=== PATIENT | male | born 1985 | race Caucasian/White ===

== ENCOUNTER 2017-01-31 06:20 | Emergency (ER) | payer OTHER ==
[~2017-01-31] VITALS: Ht 175.3 cm; Wt 105.0 kg
[2017-01-31 06:22] VITALS: BP 160/94; PULSE 83; RESP 22; TEMP 97.9; O2SAT 98
[2017-01-31] MEDS ORDERED: OMEP10CA PO (06:31)
[2017-01-31 06:32] VITALS: BP 155/96; PULSE 65; RESP 18; O2SAT 98
[2017-01-31] MEDS ORDERED: KETOROLAC TROMETHAMINE 30 MG/ML (IVP) VIAL IVP ONE (06:45)
[2017-01-31] MEDS ORDERED: FAMOTIDINE 20 MG/2 ML VIAL IV PUSH ONE (06:45)
[2017-01-31] MEDS ORDERED: SODIUM CHLORIDE 0.9% FLUSH 10 ML FLUSH IV FLUSH PRN (06:45)
[2017-01-31] MEDS ORDERED: MORPHINE SULFATE 4 MG/ML INJ IV PUSH ONE (06:45)
[2017-01-31] MEDS ORDERED: ONDANSETRON HCL 4 MG/2 ML VIAL IVP ONE (06:45)
[2017-01-31] MEDS ORDERED: SODIUM CHLOR 0.9% 1000 ML INJ 1,000 ML IV SCH (06:45)
--- NOTE | 2017-01-31 06:50 | PD ---
HPI Chief Complaint: Chest Pain Time Seen by Provider: 06:38 Travel History International Travel<30 days: No Contact w/Intl Traveler<30days: No Traveled to known affect area: No History of Present Illness HPI The patient is a 32-year-old male who presents to the emergency department for chest pain and abdominal pain. The patient states he had a laparoscopic cholecystectomy performed 3 weeks ago at [facility] in [place], [place]. The patient was doing well over the last 2-1/2 weeks until last Sunday when he developed low back pain and in severe upper epigastric pain and lower chest pain that lasted for approximate 5 minutes. The patient states he burped a significant amount of air and then subsequently felt better. The patient was awake this morning, getting dressed for work, when he developed low back pain. He then developed some nausea and vomiting and then developed severe epigastric abdominal pain and substernal chest pain with mild shortness of breath. The patient denies any history of coronary artery disease, does note borderline hypertension in the , but denies any subsequent hyperlipidemia, diabetes, or tobacco use. The pain is located in epigastrium and substernal area, radiates minimally to the lower back, and was associated with one episode of nausea and vomiting. The patient does not have a primary physician. PFSH Past Medical History Narrative Medical Borderline hypertension Diminished Hearing: No Medical other: Yes (STATES "CHRONIC ABD PROBLEMS") Tetanus Vaccination: < 5 Years Influenza Vaccination: No Past Surgical History Narrative Surgical Laparoscopic cholecystectomy Cholecystectomy: Yes (3 WEEKS AGO) Social History Alcohol Use: Yes Tobacco Use: No Substance Use: No Allergies-Medications (Allergen,Severity, Reaction): Coded Allergies: No Known Allergies (Unverified , 01/31/17) Reported Meds & Prescriptions Reported Meds & Active Scripts Active Reported Omeprazole 10 Mg Cap 10 Mg PO DAILY Review of Systems Except as stated in HPI: all other systems reviewed are Neg General / Constitutional: No: Fever Cardiovascular: Positive: Chest Pain or Discomfort Respiratory: Positive: Shortness of Breath Gastrointestinal: Positive: Nausea, Vomiting, Abdominal Pain Genitourinary: No: Dysuria Physical Exam Narrative GENERAL: Awake, alert, pleasant 32-year-old male who appears his stated age and appears in moderate discomfort. SKIN: Focused skin assessment warm/dry. HEAD: Atraumatic. Normocephalic. EYES: Pupils equal and round. No scleral icterus. No injection or drainage. ENT: No nasal bleeding or discharge. Mucous membranes pink and moist. NECK: Trachea midline. No JVD. CARDIOVASCULAR: Regular rate and rhythm. No murmur appreciated. Heart rate in the 60s. RESPIRATORY: No accessory muscle use. Clear to auscultation. Breath sounds equal bilaterally. GASTROINTESTINAL: Abdomen soft, tender palpation right upper quadrant and epigastrium. No rebound tenderness. MUSCULOSKELETAL: No obvious deformities. No clubbing. No cyanosis. No edema. NEUROLOGICAL: Awake and alert. No obvious cranial nerve deficits. Motor grossly within normal limits. Normal speech. PSYCHIATRIC: Appropriate mood and affect; insight and judgment normal. Data Data Last Documented VS Vital Signs Date Time Temp Pulse Resp B/P Pulse Ox O2 Delivery O2 Flow Rate FiO2 01/31/17 08:13 18 01/31/17 07:11 67 132/66 99 01/31/17 06:32 Room Air 01/31/17 06:22 97.9 Orders Complete Blood Count With Diff (01/31/17 06:45) Comprehensive Metabolic Panel (01/31/17 06:45) Lipase (01/31/17 06:45) Urinalysis - C+S If Indicated (01/31/17 06:45) Iv Access Insert/Monitor (01/31/17 06:45) Ecg Monitoring (01/31/17 06:45) Oximetry (01/31/17 06:45) Morphine Inj (Morphine Inj) (01/31/17 06:45) Ondansetron Inj (Zofran Inj) (01/31/17 06:45) Sodium Chlor 0.9% 1000 Ml Inj (Ns 1000 M (01/31/17 06:45) Sodium Chloride 0.9% Flush (Ns Flush) (01/31/17 06:45) Chest, Single Ap (01/31/17 06:45) Famotidine Inj (Pepcid Inj) (01/31/17 06:45) Ketorolac Inj (Toradol Inj) (01/31/17 06:45) Troponin I (01/31/17 06:45) Creatine Kinase (Cpk) (01/31/17 06:45) Ct Abd/Pel W Iv Contrast(Rout) (01/31/17 ) Electrocardiogram (01/31/17 ) Iohexol 350 Inj (Omnipaque 350 Inj) (01/31/17 08:19) Labs Laboratory Tests Test 01/31/17 01/31/17 06:50 07:55 White Blood Count 9.5 TH/MM3 Red Blood Count 4.50 MIL/MM3 Hemoglobin 12.7 GM/DL Hematocrit 38.1 % Mean Corpuscular Volume 84.5 FL Mean Corpuscular Hemoglobin 28.3 PG Mean Corpuscular Hemoglobin 33.5 % Concent Red Cell Distribution Width 14.2 % Platelet Count 278 TH/MM3 Mean Platelet Volume 7.5 FL Neutrophils (%) (Auto) 62.5 % Lymphocytes (%) (Auto) 28.8 % Monocytes (%) (Auto) 7.6 % Eosinophils (%) (Auto) 0.7 % Basophils (%) (Auto) 0.4 % Neutrophils # (Auto) 5.9 TH/MM3 Lymphocytes # (Auto) 2.7 TH/MM3 Monocytes # (Auto) 0.7 TH/MM3 Eosinophils # (Auto) 0.1 TH/MM3 Basophils # (Auto) 0.0 TH/MM3 CBC Comment DIFF FINAL Differential Comment Urine Color LIGHT-YELLOW Urine Turbidity CLEAR Urine pH 5.5 Urine Specific [place] 1.005 Urine Protein NEG mg/dL Urine Glucose (UA) NEG mg/dL Urine Ketones NEG mg/dL Urine Occult Blood NEG Urine Nitrite NEG Urine Bilirubin NEG Urine Urobilinogen LESS THAN 2.0 MG/DL Urine Leukocyte Esterase NEG Urine RBC LESS THAN 1 /hpf Microscopic Urinalysis Comment CULT NOT INDICATED Sodium Level 145 MEQ/L Potassium Level 3.8 MEQ/L Chloride Level 111 MEQ/L Carbon Dioxide Level 23.6 MEQ/L Anion Gap 10 MEQ/L Blood Urea Nitrogen 11 MG/DL Creatinine 0.74 MG/DL Estimat Glomerular Filtration 123 ML/MIN Rate Random Glucose 94 MG/DL Calcium Level 8.4 MG/DL Total Bilirubin 0.8 MG/DL Aspartate Amino Transf 22 U/L (AST/SGOT) Alanine Aminotransferase 34 U/L (ALT/SGPT) Alkaline Phosphatase 110 U/L Total Creatine Kinase 104 U/L Troponin I LESS THAN 0.02 NG/ML Total Protein 6.9 GM/DL Albumin 3.4 GM/DL Lipase 145 U/L MDM Medical Decision Making Medical Screen Exam Complete: Yes Emergency Medical Condition: Yes Medical Record Reviewed: Yes Interpretation(s) EKG reveals normal sinus rhythm with a rate of 67. No ischemic changes or ectopy noted. Differential Diagnosis Differential diagnosis includes pancreatitis, retained biliary stone, gastritis , peptic ulcer disease, esophageal spasm, acute coronary syndrome, pulmonary embolism, pneumonia, nephrolithiasis. Narrative Course IV was established, labs are drawn and sent, and the patient was placed on cardiac telemetry monitoring and continuous pulse oximetry monitoring. EKG was ordered and interpreted. The patient was administered morphine, Zofran, Toradol , and IV fluids. Upright chest x-ray was obtained. The patient was signed out to the oncoming physician at 7 AM with laboratory evaluation and x-ray pending. Diagnosis Primary Impression: Abdominal pain Qualified Code: R10.13 - Epigastric pain Condition: Stable King Fitzpatrick MD January 31, 2017 06:50
[2017-01-31 07:11] VITALS: BP 132/66; PULSE 67; O2SAT 99
--- NOTE | 2017-01-31 07:16 | PD ---
Data Data Last Documented VS Vital Signs Date Time Temp Pulse Resp B/P Pulse Ox O2 Delivery O2 Flow Rate FiO2 01/31/17 08:13 18 01/31/17 07:11 67 132/66 99 01/31/17 06:32 Room Air 01/31/17 06:22 97.9 Orders Complete Blood Count With Diff (01/31/17 06:45) Comprehensive Metabolic Panel (01/31/17 06:45) Lipase (01/31/17 06:45) Urinalysis - C+S If Indicated (01/31/17 06:45) Iv Access Insert/Monitor (01/31/17 06:45) Ecg Monitoring (01/31/17 06:45) Oximetry (01/31/17 06:45) Morphine Inj (Morphine Inj) (01/31/17 06:45) Ondansetron Inj (Zofran Inj) (01/31/17 06:45) Sodium Chlor 0.9% 1000 Ml Inj (Ns 1000 M (01/31/17 06:45) Sodium Chloride 0.9% Flush (Ns Flush) (01/31/17 06:45) Chest, Single Ap (01/31/17 06:45) Famotidine Inj (Pepcid Inj) (01/31/17 06:45) Ketorolac Inj (Toradol Inj) (01/31/17 06:45) Troponin I (01/31/17 06:45) Creatine Kinase (Cpk) (01/31/17 06:45) Ct Abd/Pel W Iv Contrast(Rout) (01/31/17 ) Electrocardiogram (01/31/17 ) Iohexol 350 Inj (Omnipaque 350 Inj) (01/31/17 08:19) Labs Laboratory Tests Test 01/31/17 01/31/17 06:50 07:55 White Blood Count 9.5 TH/MM3 Red Blood Count 4.50 MIL/MM3 Hemoglobin 12.7 GM/DL Hematocrit 38.1 % Mean Corpuscular Volume 84.5 FL Mean Corpuscular Hemoglobin 28.3 PG Mean Corpuscular Hemoglobin 33.5 % Concent Red Cell Distribution Width 14.2 % Platelet Count 278 TH/MM3 Mean Platelet Volume 7.5 FL Neutrophils (%) (Auto) 62.5 % Lymphocytes (%) (Auto) 28.8 % Monocytes (%) (Auto) 7.6 % Eosinophils (%) (Auto) 0.7 % Basophils (%) (Auto) 0.4 % Neutrophils # (Auto) 5.9 TH/MM3 Lymphocytes # (Auto) 2.7 TH/MM3 Monocytes # (Auto) 0.7 TH/MM3 Eosinophils # (Auto) 0.1 TH/MM3 Basophils # (Auto) 0.0 TH/MM3 CBC Comment DIFF FINAL Differential Comment Urine Color LIGHT-YELLOW Urine Turbidity CLEAR Urine pH 5.5 Urine Specific [place] 1.005 Urine Protein NEG mg/dL Urine Glucose (UA) NEG mg/dL Urine Ketones NEG mg/dL Urine Occult Blood NEG Urine Nitrite NEG Urine Bilirubin NEG Urine Urobilinogen LESS THAN 2.0 MG/DL Urine Leukocyte Esterase NEG Urine RBC LESS THAN 1 /hpf Microscopic Urinalysis Comment CULT NOT INDICATED Sodium Level 145 MEQ/L Potassium Level 3.8 MEQ/L Chloride Level 111 MEQ/L Carbon Dioxide Level 23.6 MEQ/L Anion Gap 10 MEQ/L Blood Urea Nitrogen 11 MG/DL Creatinine 0.74 MG/DL Estimat Glomerular Filtration 123 ML/MIN Rate Random Glucose 94 MG/DL Calcium Level 8.4 MG/DL Total Bilirubin 0.8 MG/DL Aspartate Amino Transf 22 U/L (AST/SGOT) Alanine Aminotransferase 34 U/L (ALT/SGPT) Alkaline Phosphatase 110 U/L Total Creatine Kinase 104 U/L Troponin I LESS THAN 0.02 NG/ML Total Protein 6.9 GM/DL Albumin 3.4 GM/DL Lipase 145 U/L [facility] Supervised Visit with FRANKY: No Narrative Course Patient care assumed from Dr. King Fitzpatrick at 0700. Patient 32-year-old male presents emergency Department with epigastric pain radiating up into his chest. He states his been having some minimal shortness of breath and the pain is at its worse. 3 weeks ago he had a scalp a cholecystectomy at an outside facility. She is also been having some mild nausea. Clinically he is low risk for ACS. PE is excludable by wells and PERC criteria. Initial workup with CBC CMP troponin EKG and CT abdomen is negative. Patient reassessed by me sleeping soundly easily aroused. He states is feeling better at this time. He seems somewhat frustrated that no definitive diagnosis can be treated to his pain. I discussed he needs to follow up with his surgeon by phone at the very least today. He is stable for discharge at this time. Diagnosis Primary Impression: Abdominal pain Disposition: 01 DISCHARGE HOME Condition: Stable Bubba Chaidez MD January 31, 2017 07:16
[2017-01-31 07:54] LABS: BLOOD, URINE NEG (NEG); GLUCOSE,URINE NEG (NEG); KETONE, URINE NEG (NEG); NITRITE,URINE NEG (NEG); PH, URINE 5.5 (5.0-8.5); URINE COLOR LIGHT-YELLOW (YELLW/STRAW)
[2017-01-31 07:59] LABS: COMMENT (UR) CULT NOT INDICATED; CULTURE IF INDICATED CULT NOT INDICATED
[2017-01-31 08:13] VITALS: RESP 18
[2017-01-31 08:15] LABS: AUTOMATED NEUTROPHIL # 5.9 TH/MM3 (1.8-7.7); BASOPHIL % 0.4 % (0.0-2.0); EOSINOPHIL # 0.1 TH/MM3 (0-0.4); EOSINOPHIL % 0.7 % (0.0-4.0); HEMATOCRIT 38.1 % (39.0-51.0); HEMO FLAGS DIFF FINAL; LYMPH % 28.8 % (9.0-44.0); LYMPHOCYTE # 2.7 TH/MM3 (1.0-4.8); MEAN CELL VOLUME 84.5 FL (80.0-100.0); MEAN CORPUSCULAR HEMOGLOBIN 28.3 PG (27.0-34.0); MEAN CORPUSCULAR HGB CONC 33.5 % (32.0-36.0); MONO % 7.6 % (0.0-8.0); NEUT % 62.5 % (16.0-70.0); PLATELET COUNT 278 TH/MM3 (150-450); RED CELL DISTRIBUTION WIDTH 14.2 % (11.6-17.2); WHITE BLOOD COUNT 9.5 TH/MM3 (4.0-11.0)
[2017-01-31] MEDS ORDERED: IOHEXOL 350 MG/ML 10 ML VIAL (for RAD DIAG) IV ONE (08:19)
--- NOTE | 2017-01-31 08:28 | RADRPT ---
EXAM DATE/TIME: 01/31/2017 07:02 [facility] COMPARISON: No previous studies available for comparison. INDICATIONS : Chest pain. MEDICAL HISTORY : None. SURGICAL HISTORY : Removal of gallbladder. ENCOUNTER: Initial ACUITY: 1 day PAIN SCORE: 0/10 LOCATION: Bilateral chest FINDINGS: A single view of the chest demonstrates the lungs to be symmetrically aerated without evidence of mas s, infiltrate or effusion. The cardiomediastinal contours are unremarkable. Osseous structures are intact. CONCLUSION: No acute disease. Karlos Valenzuela MD on January 31, 2017 at 7:08 Board Certified Radiologist. This report was verified electronically.
--- NOTE | 2017-01-31 08:51 | EKG ---
Date Performed: 01/31/2017 Time Performed: 06:33:15 PTAGE: 32 years EKG: Sinus rhythm NORMAL ECG NO PREVIOUS TRACING DOCTOR: Tony Milan Interpretating Date/Time 01/31/2017 08:50:31
--- NOTE | 2017-01-31 09:14 | RADRPT ---
EXAM DATE/TIME: 01/31/2017 08:15 [facility] COMPARISON: No previous studies available for comparison. INDICATIONS : Post surgery epigastric pain. IV CONTRAST: 85 cc Omnipaque 350 (iohexol) IV ORAL CONTRAST: No oral contrast ingested. RADIATION DOSE: 14.28 CTDIvol (mGy) MEDICAL HISTORY : None SURGICAL HISTORY : Cholecystectomy. ENCOUNTER: Initial ACUITY: 2 weeks PAIN SCALE: 8/10 LOCATION: upper quadrant TECHNIQUE: Volumetric scanning of the abdomen and pelvis was performed. Using automated exposure control and ad justment of the mA and/or kV according to patient size, radiation dose was kept as low as reasonably achievable to obtain optimal diagnostic quality images. FINDINGS: LOWER LUNGS: The visualized lower lungs are clear. LIVER: Homogeneous density without lesion. There is no dilation of the biliary tree. Cholecystectomy clips are identified in the gallbladder fossa. No fluid collections identified. SPLEEN: Normal size without lesion. PANCREAS: Within normal limits. KIDNEYS: Normal in size and shape. There is no mass, stone or hydronephrosis. ADRENAL GLANDS: Within normal limits. VASCULAR: There is no aortic aneurysm. BOWEL/MESENTERY: No evidence of bowel dilatation. No free air or free fluid. Appendix within normal limits. ABDOMINAL WALL: Within normal limits. RETROPERITONEUM: There is no lymphadenopathy. BLADDER: No wall thickening or mass. REPRODUCTIVE: Within normal limits. INGUINAL: There is no lymphadenopathy or hernia. MUSCULOSKELETAL: Within normal limits for patient age. CONCLUSION: Status post cholecystectomy. No acute findings in the abdomen and pelvis. Pancho Wilkes MD on January 31, 2017 at 9:04 Board Certified Radiologist. This report was verified electronically.
[2017-01-31 09:40] LABS: BLOOD UREA NITROGEN 11 MG/DL (7-18); GLOMERULAR FILTRATION RATE 123 ML/MIN (>89)
[2017-01-31 09:41] LABS: ALKALINE PHOSPHATASE 110 U/L (45-117); ALT (GPT) 34 U/L (12-78); AST (GOT) 22 U/L (15-37); POTASSIUM 3.8 MEQ/L (3.5-5.1); SODIUM (NA) 145 MEQ/L (136-145); TOTAL BILIRUBIN ADULT 0.8 MG/DL (0.2-1.0)
[2017-01-31 09:42] LABS: ANION GAP 10 MEQ/L (5-15); BICARBONATE 23.6 MEQ/L (21.0-32.0); CHLORIDE 111 MEQ/L (98-107); CREATINE KINASE 104 U/L (39-308)
== END 2017-01-31 10:55 | disposition home or self-care (01) ==
LOC: NEPC 06:20
DX: R10.13 Epigastric pain (principal); Z90.49 Acquired absence of other specified parts of digestive tract
CPT/HCPCS: 71010; 74177; 80053; 81001; 82550; 83690; 84484; 85025; 93005; 96361; 96374; 96375; 99285; J1885; J2270; J2405; J7030; Q9967

== ENCOUNTER 2017-07-23 14:47 | Emergency (ER) | payer OTHER ==
[~2017-07-23] VITALS: Ht 175.3 cm; Wt 100.0 kg
[~2017-07-23 14:47] MED LIST: OMEP10CA PO
[2017-07-23 14:49] VITALS: BP 171/87; PULSE 82; RESP 17; TEMP 97.9; O2SAT 98
[2017-07-23] MEDS ORDERED: LACTCAP8 PO (15:33)
[2017-07-23] MEDS ORDERED: SODIUM CHLOR 0.9% 1000 ML INJ 1,000 ML IV ONE (16:15)
--- NOTE | 2017-07-23 16:29 | PD ---
HPI Chief Complaint: GI Complaint Time Seen by Provider: 15:54 Travel History International Travel<30 days: No Contact w/Intl Traveler<30days: No Traveled to known affect area: No History of Present Illness HPI This is a 32-year-old male who presents to the emergency department with diarrhea that's been copious for 3 days, 10 episodes per day, watery, constant, severe. He denies any associated abdominal pain but he does feel bloated. He denies any fevers or chills. The patient has chronic diarrhea that's been going on ever since April when he got his gallbladder out. He says at that time he had a colonoscopy and had some bleeding which was related to internal hemorrhoids. Otherwise the colonoscopy was normal. He's been told by his GI doctor that he may have irritable bowel syndrome. He does say he just took 2 ciprofloxacin doses last week in the setting of an upper respiratory infection but denies any other antibiotic use. He has not traveled or gone camping. [facility] Past Medical History Medical History: Denies Significant Hx Diminished Hearing: No Tetanus Vaccination: < 5 Years Past Surgical History Cholecystectomy: Yes Social History Alcohol Use: Yes Tobacco Use: No Substance Use: No Allergies-Medications (Allergen,Severity, Reaction): Coded Allergies: No Known Allergies (Unverified Adverse Reaction, Unknown, 07/23/17) Reported Meds & Prescriptions Reported Meds & Active Scripts Active Reported Probiotic (Lactobacillus Acidophilus) 10 Billion Cell Cap 1 Cap PO DAILY Review of Systems Except as stated in HPI: all other systems reviewed are Neg Physical Exam Narrative GENERAL:Well appearing, no acute distress SKIN: Focused skin assessment warm and dry. HEAD: Atraumatic. Normocephalic. EYES: Pupils equal and round. No injection or drainage. ENT: Moist mucous membranes NECK: Trachea midline. CARDIOVASCULAR: Regular rate and rhythm. No murmur appreciated. RESPIRATORY: Clear to auscultation. Breath sounds equal bilaterally. GASTROINTESTINAL: Abdomen soft, non-tender, nondistended. MUSCULOSKELETAL: No obvious deformities. NEUROLOGICAL: Awake and alert. No obvious cranial nerve deficits. Moving all extremities. PSYCHIATRIC: Appropriate mood and affect; insight and judgment normal. Data Data Last Documented VS Vital Signs Date Time Temp Pulse Resp B/P (MAP) Pulse Ox O2 Delivery O2 Flow Rate FiO2 07/23/17 14:49 97.9 82 17 171/87 (115) 98 Room Air Orders Orders Complete Blood Count With Diff (07/23/17 16:01) Comprehensive Metabolic Panel (07/23/17 16:01) ^ Insert Iv (07/23/17 16:01) Sodium Chlor 0.9% 1000 Ml Inj (Ns 1000 M (07/23/17 16:15) MDM Medical Decision Making Medical Screen Exam Complete: Yes Emergency Medical Condition: Yes Differential Diagnosis gastroenteritis, irritable bowel syndrome, malabsorption, electrolyte abnormality Narrative Course This is a 32-year-old male who presents to the emergency department with copious diarrhea over the past 3 days. He has been lightheaded and dizzy and he feels like he is losing more fluid than he normally does. He does have chronic diarrhea. I suspect he has irritable bowel syndrome. Labs will be obtained and patient will be given a liter of IV fluid. I'll make he requires any CT imaging as he has a benign abdominal exam. Electrolytes should be repleted. 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 Heather Rowe MD Jul 23, 2017 16:28
[2017-07-23 16:30] VITALS: BP 151/88; PULSE 69; RESP 14; O2SAT 97
[2017-07-23 17:03] LABS: BASOPHIL # 0.1 TH/MM3 (0-0.2); BASOPHIL % 0.7 % (0.0-2.0); EOSINOPHIL % 0.3 % (0.0-4.0); HEMO FLAGS DIFF FINAL; LYMPH % 24.7 % (9.0-44.0); LYMPHOCYTE # 2.9 TH/MM3 (1.0-4.8); MEAN CELL VOLUME 87.9 FL (80.0-100.0); MEAN CORPUSCULAR HEMOGLOBIN 29.1 PG (27.0-34.0); MEAN CORPUSCULAR HGB CONC 33.1 % (32.0-36.0); MONO % 7.2 % (0.0-8.0); NEUT % 67.1 % (16.0-70.0); PLATELET COUNT 365 TH/MM3 (150-450); RED BLOOD COUNT 5.35 MIL/MM3 (4.50-5.90); RED CELL DISTRIBUTION WIDTH 15.1 % (11.6-17.2); WHITE BLOOD COUNT 11.9 TH/MM3 (4.0-11.0)
[2017-07-23 17:18] LABS: ALKALINE PHOSPHATASE 126 U/L (45-117); TOTAL BILIRUBIN ADULT 0.9 MG/DL (0.2-1.0)
[2017-07-23 17:20] VITALS: BP 138/85; PULSE 66; RESP 16; O2SAT 100
[2017-07-23 17:21] LABS: ALT (GPT) 34 U/L (12-78); ANION GAP 10 MEQ/L (5-15); AST (GOT) 26 U/L (15-37); BICARBONATE 25.4 MEQ/L (21.0-32.0); BLOOD UREA NITROGEN 15 MG/DL (7-18); CHLORIDE 107 MEQ/L (98-107); GLOMERULAR FILTRATION RATE 104 ML/MIN (>89); POTASSIUM 4.2 MEQ/L (3.5-5.1); SODIUM (NA) 142 MEQ/L (136-145)
[2017-07-23] MEDS ORDERED: LOMO2.5T PO (17:39)
--- NOTE | 2017-07-23 17:41 | PD ---
Physical Exam Date Seen by Provider: Jul 23, 2017 Time Seen by Provider: 17:40 Narrative GENERAL: Well-nourished, well-developed male in no acute distress. Afebrile. Ambulatory. Resting comfortably in bed. SKIN: Focused skin assessment warm/dry. HEAD: Normocephalic. EYES: No scleral icterus. No injection or drainage. NECK: Supple, trachea midline. No JVD or lymphadenopathy. CARDIOVASCULAR: Regular rate and rhythm without murmurs, gallops, or rubs. RESPIRATORY: Breath sounds equal bilaterally. No accessory muscle use. GASTROINTESTINAL: Abdomen soft, non-tender, nondistended. No peritoneal signs. No rebound tenderness. Data Data Last Documented VS Vital Signs Date Time Temp Pulse Resp B/P (MAP) Pulse Ox O2 Delivery O2 Flow Rate FiO2 07/23/17 17:20 66 16 138/85 (102) 100 Room Air 07/23/17 14:49 97.9 Orders Orders Complete Blood Count With Diff (07/23/17 16:01) Comprehensive Metabolic Panel (07/23/17 16:01) ^ Insert Iv (07/23/17 16:01) Sodium Chlor 0.9% 1000 Ml Inj (Ns 1000 M (07/23/17 16:15) Labs Laboratory Tests Test 07/23/17 16:26 White Blood Count 11.9 TH/MM3 Red Blood Count 5.35 MIL/MM3 Hemoglobin 15.6 GM/DL Hematocrit 47.0 % Mean Corpuscular Volume 87.9 FL Mean Corpuscular Hemoglobin 29.1 PG Mean Corpuscular Hemoglobin Concent 33.1 % Red Cell Distribution Width 15.1 % Platelet Count 365 TH/MM3 Mean Platelet Volume 7.0 FL Neutrophils (%) (Auto) 67.1 % Lymphocytes (%) (Auto) 24.7 % Monocytes (%) (Auto) 7.2 % Eosinophils (%) (Auto) 0.3 % Basophils (%) (Auto) 0.7 % Neutrophils # (Auto) 8.0 TH/MM3 Lymphocytes # (Auto) 2.9 TH/MM3 Monocytes # (Auto) 0.9 TH/MM3 Eosinophils # (Auto) 0.0 TH/MM3 Basophils # (Auto) 0.1 TH/MM3 CBC Comment DIFF FINAL Differential Comment Blood Urea Nitrogen 15 MG/DL Creatinine 0.85 MG/DL Random Glucose 94 MG/DL Total Protein 8.3 GM/DL Albumin 4.1 GM/DL Calcium Level 9.2 MG/DL Alkaline Phosphatase 126 U/L Aspartate Amino Transf (AST/SGOT) 26 U/L Alanine Aminotransferase (ALT/SGPT) 34 U/L Total Bilirubin 0.9 MG/DL Sodium Level 142 MEQ/L Potassium Level 4.2 MEQ/L Chloride Level 107 MEQ/L Carbon Dioxide Level 25.4 MEQ/L Anion Gap 10 MEQ/L Estimat Glomerular Filtration Rate 104 ML/MIN [facility] Medical Record Reviewed: Yes Supervised Visit with FRANKY: Yes Narrative Course Patient sent out to me pending labs. In short this is a 32-year-old male with history of chronic diarrhea over the past 3 months who presents to the emergency room for worsening diarrhea over the past 3 days. He has had 2 episodes of associated nausea and vomiting today. Patient denies any abdominal pain, fever, chills. Abdomen soft, nontender. CBC, CMP are completely unremarkable. Patient is in no acute distress. He was reassured and discharged with prescription for Lomotil. Told to follow-up with his code enforcement officer. He has an appointment already scheduled. Told to return sooner for worsening symptoms. He understands and agrees to plan. Diagnosis Primary Impression: Irritable bowel syndrome Qualified Codes: K58.0 - Irritable bowel syndrome with diarrhea Referrals: Laboratory Operations Coordinator Additional Instruction: Rest and drink plenty of fluids. Take Lomotil as directed for the next 48 hours, then as needed for diarrhea. Follow-up with your code enforcement officer as planned. Return to the emergency room for worsening symptoms Med/Other Pt SpecificInfo: Prescription(s) given Scripts Diphenoxylate-Atropine (Lomotil) 2.5-0.025 Mg Tab 2 TAB PO Q8HR Y for DIARRHEA for 5 Days, TAB 0 Refills Prov: Heather Rowe MD 07/23/17 Disposition: 01 DISCHARGE HOME Condition: Stable Kayleen Mercado Jul 23, 2017 17:41
== END 2017-07-23 18:08 | disposition home or self-care (01) ==
LOC: NEPD 14:47
DX: K58.9 Irritable bowel syndrome, unspecified (principal); R19.7 Diarrhea, unspecified; R11.2 Nausea with vomiting, unspecified; R42 Dizziness and giddiness
CPT/HCPCS: 80053; 85025; 96360; 99284; J7030

== ENCOUNTER 2018-01-23 17:49 | Emergency (ER) | payer SELFPAY ==
[~2018-01-23] VITALS: Ht 175.3 cm; Wt 100.0 kg
[~2018-01-23 17:49] MED LIST changes: +LACTCAP8 PO; +LOMO2.5T PO; -OMEP10CA PO
[2018-01-23 17:56] VITALS: BP 140/82; PULSE 80; RESP 16; TEMP 98.6; O2SAT 98
[2018-01-23] MEDS ORDERED: ACETAMINOPHEN/HYDROcodone 325 MG/5 MG TAB PO ONE (18:30)
[2018-01-23] MEDS ORDERED: TETANUS/DIPHTHERIA TOXOID ADULT 0.5 ML VIAL IM ONE (18:30)
[2018-01-23] MEDS ORDERED: LIDOCAINE 1%/EPINEPHrine 1:100,000 SOLN 20 ML VIAL INFIL ONE (18:30)
--- NOTE | 2018-01-23 18:31 | PD ---
HPI Chief Complaint: Laceration/Skin Injury Time Seen by Provider: 18:19 Travel History International Travel<30 days: No Contact w/Intl Traveler<30days: No Traveled to known affect area: No History of Present Illness HPI 32-year-old male presents to the emergency department for evaluation of laceration to his left anterior lower leg. Patient states that he was cutting down bushes with machete when it slipped and cut his leg. Patient states his tetanus immunization was exactly 5 years ago. He agrees to have it updated today. Patient denies any loss of range of motion loss of strength to the lower extremity. No fevers or chills but has no chronic medical problems and takes no prescribed medications. Current pain is 4/10, aching and throbbing, without radiation. Exacerbating factor is movement. No alleviating factors. Moderate severity. PFSH Past Medical History Diminished Hearing: No Past Surgical History Cholecystectomy: Yes Social History Alcohol Use: Yes Tobacco Use: No Substance Use: No Allergies-Medications (Allergen,Severity, Reaction): Coded Allergies: No Known Allergies (Unverified Adverse Reaction, Unknown, 01/23/18) Reported Meds & Prescriptions Reported Meds & Active Scripts Active Lomotil (Diphenoxylate-Atropine) 2.5-0.025 Mg Tab 2 Tab PO Q8HR PRN 5 Days Reported Probiotic (Lactobacillus Acidophilus) 10 Billion Cell Cap 1 Cap PO DAILY Review of Systems Except as stated in HPI: all other systems reviewed are Neg Physical Exam Narrative GENERAL: Well-nourished, well-developed male patient, afebrile. SKIN: Focused skin assessment warm/dry. Patient has a 6 cm laceration left anterior lower leg. This appears to barely go into the musculature. No evidence of tendon injury. Bleeding is controlled. HEAD: Normocephalic. Atraumatic. EYES: No scleral icterus. No injection or drainage. NECK: Supple, trachea midline. No JVD or lymphadenopathy. CARDIOVASCULAR: Regular rate and rhythm without murmurs, gallops, or rubs. Left pedal pulse is 2+. RESPIRATORY: Breath sounds equal bilaterally. No accessory muscle use. Lung sounds are clear to auscultation. GASTROINTESTINAL: Abdomen soft, non-tender, nondistended. MUSCULOSKELETAL: No cyanosis, or edema. Patient has 5 out of 5 strength to the left lower leg, left ankle, all digits of the left foot. He has full range of motion of all joints on the left leg. BACK: Nontender without obvious deformity. No CVA tenderness. Data Data Last Documented VS Vital Signs Date Time Temp Pulse Resp B/P (MAP) Pulse Ox O2 Delivery O2 Flow Rate FiO2 01/23/18 17:56 98.6 80 16 140/82 (101) 98 Orders Orders Tibia/Fibula (Ap/Lat) (01/23/18 ) Acetamin-Hydrocod 325-5 Mg ([place] 5-325 (01/23/18 18:30) Tetanus/Diphtheria Tox Adult (Tetanus/Di (01/23/18 18:30) Lidocai-Epi 1%-1:100,000 Inj (Xylocaine- (01/23/18 18:30) MDM Medical Decision Making Medical Screen Exam Complete: Yes Emergency Medical Condition: Yes Medical Record Reviewed: Yes Interpretation(s) Last Impressions Tibia/Fibula X-Ray 01/23/18 0000 Signed Impressions: CONCLUSION: 1. No fracture seen. 2. Soft tissue thickening/swelling lateral mid leg. Differential Diagnosis Laceration versus open fracture versus foreign body versus tendon injury Narrative Course 32-year-old male presents to the emergency department for evaluation of a laceration to the left anterior lower leg. Tetanus immunization is updated. Patient is given [place] 5/325 mg for pain. Patient gives verbal consent for laceration repair. X-ray of the left tibia/fibula is ordered and pending. X-ray left tibia/fibula shows no acute fracture or foreign body. Laceration is repaired. Patient was discharged prescription for Keflex for prophylaxis. He is instructed on proper wound care. Patient verbalizes agreement. Procedures Procedure Narrative LACERATION LOCATION: Left lower leg LENGTH: 6 cm NUMBER OF STITCHES/DANA: 6 simple interrupted 4-0 Vicryl sutures, 3 vertical mattress 3-0 Prolene, 4 simple interrupted 3-0 Prolene REPAIR: The area of the laceration was prepped with Betadine and sterilely draped. The laceration was infiltrated with 1% lidocaine with epinephrine. The wound was copiously irrigated and explored without evidence of foreign body, tendon injury or neurovascular injury. The wound was closed using 4-0 Vicryl and 3-0 Prolene. This was a 2 layer repair. A sterile dressing was applied. The patient was advised to keep the dressing clean and dry. Patient tolerated the procedure well. Diagnosis Primary Impression: Laceration of left lower leg Qualified Codes: S81.812A - Laceration without foreign body, left lower leg, initial encounter Referrals: Primary Care Physician call for appointment Patient Instructions: Care For Your Stitches (ED), General Instructions, Laceration (ED) Additional Instructions: Take Keflex as directed until gone. Take ibuprofen as directed as needed with food for pain. Clean twice daily with soap and water and apply [id number] antibiotic ointment. Keep clean and dry. No swimming or hot tubs until healed. Suture removal in 14 days. You may follow with your primary care physician or return to the emergency department for suture removal. Return to the emergency department for any acute worsening of symptoms. Med/Other Pt SpecificInfo: Prescription(s) given Scripts Ibuprofen (Ibuprofen) 800 Mg Tab 800 MG PO TID Y for PAIN SCALE 1 TO 10, #21 TAB 0 Refills Prov: Ania Simon 01/23/18 Cephalexin (Keflex) 500 Mg Capsule 500 MG PO Q8H for Infection for 10 Days, #30 CAP 0 Refills Prov: Ania Simon 01/23/18 Disposition: 01 DISCHARGE HOME Condition: Stable Ania Simon January 23, 2018 18:31
--- NOTE | 2018-01-23 19:29 | RADRPT ---
EXAM DATE: 01/23/2018 7:13 PM EDT AGE/SEX: 32 years / Male INDICATIONS: Mid anterior left lower leg laceration. Patient hit the front of his left vallejo with a machete. CLINICAL DATA: This is the patient's initial encounter. Patient reports that signs and symptoms have been present for 1 day and indicates a pain score of 8/10. MEDICAL/SURGICAL HISTORY: None. None. COMPARISON: No prior [place] exams available for comparison. FINDINGS: Bony structures are intact and in normal alignment. Osseous density is normal. There is irregularity and thickening of the soft tissues of the lateral mid leg with some induration of the adjacent subcut aneous fat. No radiopaque foreign bodies seen. CONCLUSION: 1. No fracture seen. 2. Soft tissue thickening/swelling lateral mid leg. Electronically signed by: Jesús Begum MD 01/23/2018 7:28 PM EDT
[2018-01-23] MEDS ORDERED: CEPH-460 PO (20:25)
[2018-01-23] MEDS ORDERED: IBUP1TAB7 PO (20:26)
== END 2018-01-23 21:02 | disposition home or self-care (01) ==
LOC: NEPK 17:49
DX: S81.812A Laceration without foreign body, left lower leg, initial encounter (principal); W27.8XXA Contact with other nonpowered hand tool, initial encounter; Y93.H2 Activity, gardening and landscaping; Z23 Encounter for immunization
CPT/HCPCS: 12032; 73590; 90471; 90714

== ENCOUNTER 2018-01-24 00:07 | Inpatient (IN) | payer SELFPAY ==
[2018-01-24] VITALS (8 sets, daily range): BP systolic 125–156; BP diastolic 72–94; PULSE 68–104; RESP 14–18; TEMP 97.5–99.7; O2SAT 96–99
[~2018-01-24] VITALS: Ht 175.3 cm; Wt 106.3 kg
[~2018-01-24 00:07] MED LIST changes: +CEPH-460 PO; +IBUP1TAB7 PO
--- NOTE | 2018-01-24 01:41 | PD ---
HPI . laceration and bleeding through stitiches Chief Complaint: Bleeding Time Seen by Provider: 00:20 Travel History International Travel<30 days: No Contact w/Intl Traveler<30days: No Traveled to known affect area: No History of Present Illness HPI Patient cut his own leg with a machete today at 5 PM he said his Band-Aid that he was wearing on his hand slipped and the machete slipped and he cut his leg giving him a 7 inch gash into the anterior tib-fib area he was seen in our fast track he was sewn by the nurse practitioner with internal sutures as well as external closure he went home and then he said it started bleeding again and comes back in saying he is having a lot of pain and that it is bleeding and swelling. He was updated with tetanus he was given antibiotics and now he is back with worsening pain swelling bleeding he said he took a bandage down so it was bleeding we wrapped it with a paper towel underneath our bandage and then comes to the ER complaining of localized swelling bleeding and tenderness. He denies any bleeding disorders and he has not seen another doctor after he left our hospital and then return to our hospital [facility] Past Medical History Medical History: Denies Significant Hx Diminished Hearing: No Past Surgical History Surgical History: No Previous Surgery Cholecystectomy: Yes Social History Alcohol Use: Yes (OCC) Tobacco Use: No Substance Use: No Allergies-Medications (Allergen,Severity, Reaction): Coded Allergies: No Known Allergies (Unverified Adverse Reaction, Unknown, 01/24/18) Reported Meds & Prescriptions Reported Meds & Active Scripts Active Ibuprofen 800 Mg Tab 800 Mg PO TID PRN Lomotil (Diphenoxylate-Atropine) 2.5-0.025 Mg Tab 2 Tab PO Q8HR PRN 5 Days Reported Probiotic (Lactobacillus Acidophilus) 10 Billion Cell Cap 1 Cap PO DAILY Review of Systems Except as stated in HPI: all other systems reviewed are Neg Physical Exam Narrative GENERAL: SKIN: Warm and dry. HEAD: Atraumatic. Normocephalic. EYES: Pupils equal and round. No scleral icterus. No injection or drainage. ENT: No nasal bleeding or discharge. Mucous membranes pink and moist. NECK: Trachea midline. No JVD. CARDIOVASCULAR: Regular rate and rhythm. RESPIRATORY: No accessory muscle use. Clear to auscultation. Breath sounds equal bilaterally. GASTROINTESTINAL: Abdomen soft, non-tender, nondistended. Hepatic and splenic margins not palpable. MUSCULOSKELETAL: Extremities left anterior tib-fib mid shaft has a 7 cm laceration that is sutured closed however there is significant swelling on the lateral aspect underneath the wound and the circumference of the left calf tib- fib area is much larger than the comparison normal right side pedal pulses 2+ normal sensation is intact distal to the cut however it does look like there is probably hematoma below the injury. NEUROLOGICAL: Awake and alert. No obvious cranial nerve deficits. Motor grossly within normal limits. Five out of 5 muscle strength in the arms and legs. Normal speech. PSYCHIATRIC: Appropriate mood and affect; insight and judgment normal. Data Data Last Documented VS Orders Orders Cta Runoff W Iv Contrast W 3d (01/24/18 ) Complete Blood Count With Diff (01/24/18 01:32) Comprehensive Metabolic Panel (01/24/18 01:32) Oxycodone-Acetamin 5-325 Mg (Percocet (01/24/18 02:00) Iohexol 350 Inj (Omnipaque 350 Inj) (01/24/18 03:02) Oxycodone-Acetamin 5-325 Mg (Percocet (01/24/18 05:30) Admit Order (Ed Use Only) (01/24/18 05:36) Labs Laboratory Tests Test 01/24/18 01:30 White Blood Count 19.5 TH/MM3 Red Blood Count 4.82 MIL/MM3 Hemoglobin 14.1 GM/DL Hematocrit 41.5 % Mean Corpuscular Volume 86.1 FL Mean Corpuscular Hemoglobin 29.2 PG Mean Corpuscular Hemoglobin Concent 33.9 % Red Cell Distribution Width 14.0 % Platelet Count 326 TH/MM3 Mean Platelet Volume 7.2 FL Neutrophils (%) (Auto) 68.4 % Lymphocytes (%) (Auto) 21.3 % Monocytes (%) (Auto) 9.2 % Eosinophils (%) (Auto) 0.3 % Basophils (%) (Auto) 0.8 % Neutrophils # (Auto) 13.4 TH/MM3 Lymphocytes # (Auto) 4.1 TH/MM3 Monocytes # (Auto) 1.8 TH/MM3 Eosinophils # (Auto) 0.0 TH/MM3 Basophils # (Auto) 0.2 TH/MM3 CBC Comment DIFF FINAL Differential Comment Blood Urea Nitrogen 11 MG/DL Creatinine 1.06 MG/DL Random Glucose 88 MG/DL Total Protein 7.5 GM/DL Albumin 3.6 GM/DL Calcium Level 8.6 MG/DL Alkaline Phosphatase 96 U/L Aspartate Amino Transf (AST/SGOT) 19 U/L Alanine Aminotransferase (ALT/SGPT) 36 U/L Total Bilirubin 0.6 MG/DL Sodium Level 144 MEQ/L Potassium Level 3.6 MEQ/L Chloride Level 107 MEQ/L Carbon Dioxide Level 29.9 MEQ/L Anion Gap 7 MEQ/L Estimat Glomerular Filtration Rate 81 ML/MIN [facility] Medical Decision Making Medical Screen Exam Complete: Yes Emergency Medical Condition: Yes Medical Record Reviewed: Yes Differential Diagnosis vascular injury vs local hematoma vs compartment syndrome vs osteomyelitis other Narrative Course I take down bandage and the is significant swelling and oozing of blood from the wound through the stitiches I CTA lower extremity for run off study and call Dr Jackson and he comes bedside to see patinet and admits for observation to watch for compartment syndrome Diagnosis Primary Impression: Laceration of skin of lower leg Qualified Codes: S81.812A - Laceration without foreign body, left lower leg, initial encounter Admitting Information Admitting Physician Requests: Observation Scripts Oxycodone-Acetaminophen (Percocet) 5-325 mg Tab 1 TAB PO Q6H Y for PAIN, #28 TAB 0 Refills Prov: Allie Connors 01/27/18 Sennosides-Docusate Sodium (Gnp Senna Plus 8.6-50 mg) 8.6 Mg-50 Mg Tab 1 TAB PO BID for Constipation for 5 Days, #10 TAB Prov: Allie Connors 01/27/18 Cephalexin (Keflex) 500 Mg Capsule 500 MG PO Q8H for Infection for 5 Days, #15 CAP 0 Refills Prov: Allie Connors 01/27/18 Crutch/Aluminum/Adult/Axillary (Crutch/Aluminum/Adult/Axillary) 1 Mis Mis EA .XX DIRECTED, #1 Prov: Allie Connors 01/27/18 Rocky Gonzalez MD January 24, 2018 01:41
[2018-01-24 01:49] LABS: AUTOMATED NEUTROPHIL # 13.4 TH/MM3 (1.8-7.7); BASOPHIL # 0.2 TH/MM3 (0-0.2); BASOPHIL % 0.8 % (0.0-2.0); EOSINOPHIL % 0.3 % (0.0-4.0); HEMATOCRIT 41.5 % (39.0-51.0); HEMOGLOBIN 14.1 GM/DL (13.0-17.0); LYMPH % 21.3 % (9.0-44.0); LYMPHOCYTE # 4.1 TH/MM3 (1.0-4.8); MEAN CELL VOLUME 86.1 FL (80.0-100.0); MEAN CORPUSCULAR HEMOGLOBIN 29.2 PG (27.0-34.0); MEAN CORPUSCULAR HGB CONC 33.9 % (32.0-36.0); MEAN PLATELET VOLUME 7.2 FL (7.0-11.0); MONO % 9.2 % (0.0-8.0); MONOCYTE # 1.8 TH/MM3 (0-0.9); NEUT % 68.4 % (16.0-70.0); PLATELET COUNT 326 TH/MM3 (150-450); RED BLOOD COUNT 4.82 MIL/MM3 (4.50-5.90); WHITE BLOOD COUNT 19.5 TH/MM3 (4.0-11.0)
[2018-01-24] MEDS ORDERED: oxyCODONE/ACETAMINOPHEN 5 MG/325 MG TAB PO ONE ×2 (02:00→05:30)
[2018-01-24 02:12] LABS: ALBUMIN 3.6 GM/DL (3.4-5.0); ALT (GPT) 36 U/L (12-78); AST (GOT) 19 U/L (15-37); BICARBONATE 29.9 MEQ/L (21.0-32.0); BLOOD UREA NITROGEN 11 MG/DL (7-18); CALCIUM 8.6 MG/DL (8.5-10.1); CHLORIDE 107 MEQ/L (98-107); CREATININE 1.06 MG/DL (0.60-1.30); GLOMERULAR FILTRATION RATE 81 ML/MIN (>89); GLUCOSE,RANDOM 88 MG/DL (74-106); SODIUM (NA) 144 MEQ/L (136-145)
[2018-01-24 02:14] LABS: ALKALINE PHOSPHATASE 96 U/L (45-117); TOTAL BILIRUBIN ADULT 0.6 MG/DL (0.2-1.0); TOTAL PROTEIN 7.5 GM/DL (6.4-8.2)
[2018-01-24] MEDS ORDERED: IOHEXOL 350 MG/ML 10 ML VIAL (for RAD DIAG) IVCONTRAST ONE (03:02)
--- NOTE | 2018-01-24 03:58 | RADRPT ---
EXAM DATE: 01/24/2018 3:32 AM EDT AGE/SEX: 32 years / Male INDICATIONS: Trauma; hit in left leg with machete. Patient states increased swelling and tingling to lower left extremity after getting stitches here yesterday. CLINICAL DATA: This is the patient's initial encounter. Patient reports that signs and symptoms have been present for 1 day and indicates a pain score of 10/10. MEDICAL/SURGICAL HISTORY: None. Cholecystectomy. RADIATION DOSE: 5.12 CTDI (mGy) COMPARISON: No prior [place] exams available for comparison. TECHNIQUE: Volumetric scanning was performed using a multi-row detector CT scanner during bolus infu paramjit of 75 ml Omnipaque 350 (iohexol) nonionic water-soluble contrast as a single exam dose. The d rosa was post processed with a variety of visualization algorithms including full volume maximum inten sity projection, multi-planar sliding thin slab reformation, curved planar reformation, and surface r endering techniques. Using automated exposure control and adjustment of the mA and/or kV according t o patient size, radiation dose was kept as low as reasonably achievable to obtain optimal diagnostic quality images. FINDINGS: Abdominal Aorta: The lumen is smooth without significant narrowing or aneurysmal dilation. The pr oximal celiac and superior mesenteric arteries are patent and normal in diameter. There are solitary renal arteries bilaterally without gross abnormality. Bifurcation: Normal. Right Pelvis: The right common iliac, internal iliac, and external iliac vessels are patent without luminal irregularity. Left Pelvis: The left common iliac, internal iliac, and external iliac vessels are patent and withou t luminal irregularity. Right Thigh: The superficial femoral and profunda vessels are patent without luminal irregularity. Left Thigh: The superficial femoral and profunda vessels are patent without luminal irregularity. Right Knee: The distal femoral artery is patent and unremarkable. There is decreased enhancement in the popliteal artery and trifurcation vessels compared to the left. Left Knee: The distal femoral and popliteal arteries are patent without luminal irregularity. Right Leg: Trifurcation vessels are not visualized on the right. Left Leg: The trifurcation is intact. CONCLUSION: 1. Normal left lower extremity arterial runoff 2. Decreased enhancement of the right popliteal artery and nonvisualization of the right trifurcati on vessels. Electronically signed by: Larry Braxton MD 01/24/2018 3:57 AM EDT
[2018-01-24] MEDS ORDERED: NURSING INFORMATION XX SCH (06:30)
[2018-01-24] MEDS ORDERED: CHLORHEXIDINE GLUCONATE 2 % 1 PACK (2 CLOTHS) TOP PRN (06:30)
--- NOTE | 2018-01-24 06:43 | HHI.HP ---
History of Present Illness Primary Care Physician No Primary Care Physician Admission Diagnosis LACERATION POSSIBLE COMPARTMENT SYNDROME Diagnoses: History of Present Illness 32 y,o male injured proximal tib fib area anterior with a machete yesterday afternoon.Patient was seen in the ER and the wound was sutured in 2 layers by the ER RANGE SCIENTIST.Patient represented early am with swelling,increased pain,numbness left LE at the site of the wound. Review of Systems Constitutional: DENIES: Diaphoretic episodes, Fatigue, Fever, Weight gain, Weight loss, Chills, Dizziness, Change in appetite, Night Sweats Endocrine: DENIES: Heat/cold intolerance, Polydipsia, Polyuria, Polyphagia Eyes: DENIES: Blurred vision, Diplopia, Eye inflammation, Eye pain, Vision loss , Photosensitivity, Double Vision Ears, nose, mouth, throat: DENIES: Tinnitus, Hearing loss, Vertigo, Nasal discharge, Oral lesions, Throat pain, Hoarseness, Ear Pain, Running Nose, Epistaxis, Sinus Pain, Toothache, Odynophagia Cardiovascular: DENIES: Chest pain, Palpitations, Syncope, Dyspnea on Exertion , PND, Lower Extremity Edema, Orthopnea, Claudication Gastrointestinal: DENIES: Abdominal pain, Black stools, Bloody stools, Constipation, Diarrhea, Nausea, Vomiting, Difficulty Swallowing, Anorexia Genitourinary: DENIES: Sexual dysfunction, Urinary frequency, Urinary incontinence, Urgency, Hematuria, Dysuria, Nocturia, Penile Discharge, Testicular Pain, Testicular Swelling Musculoskeletal: DENIES: Joint pain, Muscle aches, Stiffness, Joint Swelling, Back pain, Neck pain Integumentary: DENIES: Abnormal pigmentation, Nail changes, Pruritus, Rash Hematologic/lymphatic: DENIES: Bruising, Lymphadenopathy Immunologic/allergic: DENIES: Eczema, Urticaria Neurologic: DENIES: Abnormal gait, Headache, Localized weakness, Paresthesias, Seizures, Speech Problems, Tremor, Poor Balance Psychiatric: DENIES: Anxiety, Confusion, Mood changes, Depression, Hallucinations, Agitation, Suicidal Ideation, Homicidal Ideation, Delusions Past Family Social History Allergies: Coded Allergies: No Known Allergies (Unverified Adverse Reaction, Unknown, 01/24/18) Past Medical History none Past Surgical History tirso Reported Medications none Family History none Physical Exam Vital Signs Vital Signs Date Time Temp Pulse Resp B/P (MAP) Pulse Ox O2 Delivery O2 Flow Rate FiO2 01/24/18 00:10 99.4 104 18 153/94 (113) 97 Physical Exam GENERAL: This is a well-nourished, well-developed patient, in no apparent distress. SKIN: No rashes, ecchymoses or lesions. Cool and dry. HEAD: Atraumatic. Normocephalic. No temporal or scalp tenderness. EYES: Pupils equal round and reactive. Extraocular motions intact. No scleral icterus. No injection or drainage. ENT: Nose without bleeding, purulent drainage or septal hematoma. Throat without erythema, tonsillar hypertrophy or exudate. Uvula midline. Airway patent. NECK: Trachea midline. No JVD or lymphadenopathy. Supple, nontender, no meningeal signs. CARDIOVASCULAR: Regular rate and rhythm without murmurs, gallops, or rubs. RESPIRATORY: Clear to auscultation. Breath sounds equal bilaterally. No wheezes , rales, or rhonchi. GASTROINTESTINAL: Abdomen soft, non-tender or palpable masses. No guarding. MUSCULOSKELETAL: left lower extremity swelling at the site of sutured wound 6 cm ,lateral soft tissue hematoma,soft compartments,no pain at the dorsiflexion,DP pulse palpable;r LE DP pulse palpable,no swelling no trauma-both LE neurovascular intact NEUROLOGICAL: Awake and alert. Cranial nerves II through XII intact. Motor and sensory grossly within normal limits. Five out of 5 muscle strength in all muscle groups. Normal speech. Laboratory Laboratory Tests Test 01/24/18 01:30 White Blood Count 19.5 Red Blood Count 4.82 Hemoglobin 14.1 Hematocrit 41.5 Mean Corpuscular Volume 86.1 Mean Corpuscular Hemoglobin 29.2 Mean Corpuscular Hemoglobin Concent 33.9 Red Cell Distribution Width 14.0 Platelet Count 326 Mean Platelet Volume 7.2 Neutrophils (%) (Auto) 68.4 Lymphocytes (%) (Auto) 21.3 Monocytes (%) (Auto) 9.2 Eosinophils (%) (Auto) 0.3 Basophils (%) (Auto) 0.8 Neutrophils # (Auto) 13.4 Lymphocytes # (Auto) 4.1 Monocytes # (Auto) 1.8 Eosinophils # (Auto) 0.0 Basophils # (Auto) 0.2 CBC Comment DIFF FINAL Differential Comment Blood Urea Nitrogen 11 Creatinine 1.06 Random Glucose 88 Total Protein 7.5 Albumin 3.6 Calcium Level 8.6 Alkaline Phosphatase 96 Aspartate Amino Transf (AST/SGOT) 19 Alanine Aminotransferase (ALT/SGPT) 36 Total Bilirubin 0.6 Sodium Level 144 Potassium Level 3.6 Chloride Level 107 Carbon Dioxide Level 29.9 Anion Gap 7 Estimat Glomerular Filtration Rate 81 Result Diagram: 01/24/18 0130 01/24/18 0130 Imaging Last 24 hours Impressions Aorta w/Runoff CTA 01/24/18 0000 Signed Impressions: CONCLUSION: 1. Normal left lower extremity arterial runoff 2. Decreased enhancement of the right popliteal artery and nonvisualization o f the right trifurcation vessels. Caprini VTE Risk Assessment Caprini VTE Risk Assessment: No/Low Risk (score <= 1) VTE Pharm Contraindication: Hemorrhage Caprini Risk Assessment Model Point Value = 1 Point Value = 2 Point Value = 3 Point Value = 5 Age 41-60 Minor surgery BMI > 25 kg/m2 Swollen legs Varicose veins or History of unexplained or recurrent spontaneous Oral contraceptives or hormone replacement Sepsis (< 1 month) Serious lung disease, including pneumonia (< 1 month) Abnormal pulmonary function Acute myocardial infarction Congestive heart failure (< 1 month) History of inflammatory bowel disease Medical patient at bed rest Age 61-74 Arthroscopic surgery Major open surgery (> 45 min) Laparoscopic surgery (> 45 min) Malignancy Confined to bed (> 72 hours) Immobilizing plaster cast Central venous access Age >= 75 History of VTE Family history of VTE Factor V Leiden Prothrombin [id number] Lupus anticoagulant Anticardiolipin antibodies Elevated serum homocysteine Heparin-induced thrombocytopenia Other congenital or acquired thrombophilia Stroke (< 1 month) Elective arthroplasty Hip, pelvis, or leg fracture Acute spinal cord injury (< 1 month) Prophylaxis Regimen Total Risk Factor Score Risk Level Prophylaxis Regimen 0-1 Low Early ambulation 2 Moderate Order ONE of the following: *Sequential Compression Device (SCD) *Heparin 5000 units SQ BID 3-4 Higher Order ONE of the following medications: *Heparin 5000 units SQ TID *Enoxaparin/Lovenox 40 mg SQ daily (WT < 150 kg, CrCl > 30 mL/min) *Enoxaparin/Lovenox 30 mg SQ daily (WT < 150 kg, CrCl > 10-29 mL/min) *Enoxaparin/Lovenox 30 mg SQ BID (WT < 150 kg, CrCl > 30 mL/min) AND/OR *Sequential Compression Device (SCD) 5 or more Highest Order ONE of the following medications: *Heparin 5000 units SQ TID (Preferred with Epidurals) *Enoxaparin/Lovenox 40 mg SQ daily (WT < 150 kg, CrCl > 30 mL/min) *Enoxaparin/Lovenox 30 mg SQ daily (WT < 150 kg, CrCl > 10-29 mL/min) *Enoxaparin/Lovenox 30 mg SQ BID (WT < 150 kg, CrCl > 30 mL/min) AND *Sequential Compression Device (SCD) Assessment and Plan Assessment and Plan left LE soft tissue hematoma -s/p wound closure no clinical or radiological signs of compartment syndrome CT A reviewed with the radiologist-soft tissue hematoma lateral-intact vessels left-no involvement of compartments there is no run off on the right side-however patient's injury is on the left, he is clinically asymptomatic on the right side,and all peripheral pulses are palpable- admit for observation of the hematoma pressure dressing elevate left LE pain control Loreta Rodriguez MD January 24, 2018 06:43
[2018-01-24] MEDS: DOCUSATE SODIUM 100 MG CAP PO SCH ×2 (09:34→21:00)
[2018-01-24] MEDS ORDERED: PROPOFOL 200 MG/20 ML AMP IV ONE (12:00)
[2018-01-24] MEDS ORDERED: LIDOCAINE HCL 1% PF 5 ML SYRINGE OTHER ONE (12:00)
[2018-01-24] MEDS ORDERED: ONDANSETRON HCL 4 MG/2 ML VIAL IV PUSH ONE (12:00)
[2018-01-24] MEDS: ceFAZolin 2 GM PREMIX 50 ML IV SCH ×2 (13:50→21:31)
[2018-01-24] MEDS ORDERED: MORPHINE SULFATE 4 MG/ML INJ IV PUSH ONE (15:30)
[2018-01-24] MEDS ORDERED: MIDAZOLAM HCL 2 MG/2 ML VIAL ONE (19:15)
[2018-01-24] MEDS ORDERED: ACETAMINOPHEN 1000 MG/100 ML 100 ML IV ONE (20:12)
--- NOTE | 2018-01-24 20:53 | PD.OP ---
Operative Report Hematoma left lower extremity Postoperative Diagnosis: Hematoma left lower extremity Procedure: Evacuation hematoma,washout,closure of wound left lower extremity Anesthesia: gen Surgeon: Loreta Rodriguez Online Community Manager(s): OR -FA Operation and Findings: 32 y.o male s/p open wound left lower extremity caused by a machete -patient seen in the ER last night represented early am with a hematoma.Clinically no compartment syndrome,neurovascular intact.Patient has pain ,fluctuation laterally and increased hematoma after observation,so that proceeded with evacuation in the OR. Technique: Patient's left lower extremity sterilely draped and prepped.Tib fib proximal area wound 4cm in length.Sutures removed,wound entered-no active bleeding - diffuse tissue oozing from injured muscle tissue -laterally pocket to deeper areas.Some devitalized muscle debrided.Clots evacuated,washout performed.Hemostasis obtained with a combination of Surgicel,cautery and lisa. #10 BELLA inserted and secured to skin with 0 nylon.Subcutaneous tissue reapproximated with 2-0 Vicryl-single suture in the middle.Skin closure with # 1 prolene. Patient tolerated procedure well. Loreta Rodriguez MD January 24, 2018 20:53
[2018-01-24] MEDS ORDERED: *morphine SULFATE 8 MG/ML PERIprocedure ONLY ONE (21:08)
[2018-01-24] MEDS ORDERED: DO NOT ADM ANY ANTICOAGULANT DRUGS PRN (21:30)
[2018-01-24] MEDS: MORPHINE SULFATE 4 MG/ML INJ IV PUSH PRN (23:47)
[2018-01-25] VITALS (8 sets, daily range): BP systolic 111–162; BP diastolic 59–95; PULSE 80–109; RESP 15–18; TEMP 97–99.4; O2SAT 94–97
[2018-01-25] MEDS: ACETAMINOPHEN 1000 MG/100 ML 100 ML IV SCH ×4 (03:20→20:41)
[2018-01-25] MEDS: ceFAZolin 2 GM PREMIX 50 ML IV SCH (03:21)
[2018-01-25] MEDS ORDERED: CHLORHEXIDINE GLUCONATE 2 % 1 PACK (2 CLOTHS) TOP SCH (04:00)
[2018-01-25] MEDS: DOCUSATE SODIUM 50 MG/SENNA 8.6 MG TAB PO SCH ×2 (09:20→20:42)
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
[2018-01-25] MEDS: MORPHINE SULFATE 4 MG/ML INJ IV PUSH PRN ×3 (14:15→21:39)
[2018-01-25] MEDS: CIPROFLOXACIN 500 MG TAB PO SCH ×2 (14:23→20:41)
[2018-01-26] VITALS (10 sets, daily range): BP systolic 110–141; BP diastolic 65–85; PULSE 80–97; RESP 16–18; TEMP 97.8–100.1; O2SAT 96–97
[2018-01-26] MEDS: MORPHINE SULFATE 4 MG/ML INJ IV PUSH PRN ×2 (04:19→22:48)
[2018-01-26 04:43] LABS: AUTOMATED NEUTROPHIL # 9.1 TH/MM3 (1.8-7.7); BASOPHIL # 0.1 TH/MM3 (0-0.2); BASOPHIL % 0.4 % (0.0-2.0); EOSINOPHIL # 0.2 TH/MM3 (0-0.4); EOSINOPHIL % 1.2 % (0.0-4.0); HEMATOCRIT 37.2 % (39.0-51.0); HEMOGLOBIN 12.5 GM/DL (13.0-17.0); LYMPH % 23.7 % (9.0-44.0); LYMPHOCYTE # 3.4 TH/MM3 (1.0-4.8); MEAN CELL VOLUME 86.4 FL (80.0-100.0); MEAN CORPUSCULAR HGB CONC 33.6 % (32.0-36.0); MEAN PLATELET VOLUME 7.2 FL (7.0-11.0); MONO % 10.2 % (0.0-8.0); MONOCYTE # 1.4 TH/MM3 (0-0.9); NEUT % 64.5 % (16.0-70.0); PLATELET COUNT 271 TH/MM3 (150-450); RED BLOOD COUNT 4.31 MIL/MM3 (4.50-5.90); RED CELL DISTRIBUTION WIDTH 13.7 % (11.6-17.2); WHITE BLOOD COUNT 14.2 TH/MM3 (4.0-11.0)
[2018-01-26 05:07] LABS: BICARBONATE 29.2 MEQ/L (21.0-32.0); CALCIUM 8.4 MG/DL (8.5-10.1); CREATININE 0.96 MG/DL (0.60-1.30)
[2018-01-26] MEDS: DOCUSATE SODIUM 50 MG/SENNA 8.6 MG TAB PO SCH ×2 (09:00→20:32)
[2018-01-26] MEDS: CIPROFLOXACIN 500 MG TAB PO SCH (09:16)
--- NOTE | 2018-01-26 11:39 | HHI.PR ---
Subjective Subjective Notes PTD: 2 Pt lying in bed. No distress noted. Pt c/o pain. Pt states that pain meds do help when he takes them. Encouraged pt to take pain meds for comfort and relief. Pt states, "Its not as tight as it was." Objective Vitals/I&O Vital Signs Date Time Temp Pulse Resp B/P (MAP) Pulse Ox O2 Delivery O2 Flow Rate FiO2 01/26/18 10:52 97 Room Air 01/26/18 08:00 86 01/26/18 06:08 99.5 01/26/18 04:14 18 133/68 (89) 01/24/18 21:15 2 Labs Laboratory Tests Test 01/26/18 04:29 White Blood Count 14.2 Red Blood Count 4.31 Hemoglobin 12.5 Hematocrit 37.2 Mean Corpuscular Volume 86.4 Mean Corpuscular Hemoglobin 29.0 Mean Corpuscular Hemoglobin Concent 33.6 Red Cell Distribution Width 13.7 Platelet Count 271 Mean Platelet Volume 7.2 Neutrophils (%) (Auto) 64.5 Lymphocytes (%) (Auto) 23.7 Monocytes (%) (Auto) 10.2 Eosinophils (%) (Auto) 1.2 Basophils (%) (Auto) 0.4 Neutrophils # (Auto) 9.1 Lymphocytes # (Auto) 3.4 Monocytes # (Auto) 1.4 Eosinophils # (Auto) 0.2 Basophils # (Auto) 0.1 CBC Comment DIFF FINAL Differential Comment Blood Urea Nitrogen 10 Creatinine 0.96 Random Glucose 99 Calcium Level 8.4 Sodium Level 140 Potassium Level 3.5 Chloride Level 101 Carbon Dioxide Level 29.2 Anion Gap 10 Estimat Glomerular Filtration Rate 91 Radiology Aorta w/Runoff CTA 01/24/18 0000 Signed Impressions: CONCLUSION: 1. Normal left lower extremity arterial runoff 2. Decreased enhancement of the right popliteal artery and nonvisualization o f the right trifurcation vessels. Allie Connors January 26, 2018 11:39 am
[2018-01-26] MEDS: ceFAZolin 2 GM PREMIX 50 ML IV SCH ×2 (11:52→20:31)
[2018-01-26] MEDS: KETOROLAC TROMETHAMINE 30 MG/ML (IVP) VIAL IV PUSH SCH ×2 (11:53→17:05)
[2018-01-26] MEDS: ENOXAPARIN SODIUM 30 MG/0.3 ML SYRINGE SQ SCH (11:53)
--- NOTE | 2018-01-26 12:31 | HHI.PR ---
Subjective Subjective Notes Pain left LE overall better less pressure Objective Vitals/I&O Vital Signs Date Time Temp Pulse Resp B/P (MAP) Pulse Ox O2 Delivery O2 Flow Rate FiO2 01/26/18 10:52 97 Room Air 01/26/18 08:00 86 01/26/18 06:08 99.5 01/26/18 04:14 18 133/68 (89) 01/24/18 21:15 2 Labs Laboratory Tests Test 01/26/18 04:29 White Blood Count 14.2 Red Blood Count 4.31 Hemoglobin 12.5 Hematocrit 37.2 Mean Corpuscular Volume 86.4 Mean Corpuscular Hemoglobin 29.0 Mean Corpuscular Hemoglobin Concent 33.6 Red Cell Distribution Width 13.7 Platelet Count 271 Mean Platelet Volume 7.2 Neutrophils (%) (Auto) 64.5 Lymphocytes (%) (Auto) 23.7 Monocytes (%) (Auto) 10.2 Eosinophils (%) (Auto) 1.2 Basophils (%) (Auto) 0.4 Neutrophils # (Auto) 9.1 Lymphocytes # (Auto) 3.4 Monocytes # (Auto) 1.4 Eosinophils # (Auto) 0.2 Basophils # (Auto) 0.1 CBC Comment DIFF FINAL Differential Comment Blood Urea Nitrogen 10 Creatinine 0.96 Random Glucose 99 Calcium Level 8.4 Sodium Level 140 Potassium Level 3.5 Chloride Level 101 Carbon Dioxide Level 29.2 Anion Gap 10 Estimat Glomerular Filtration Rate 91 Radiology Aorta w/Runoff CTA 01/24/18 0000 Signed Impressions: CONCLUSION: 1. Normal left lower extremity arterial runoff 2. Decreased enhancement of the right popliteal artery and nonvisualization o f the right trifurcation vessels. Cardiovascular: Regular Lungs: Clear Abdomen: Non-distended Narrative Exam left LE -incision clean,no hematoma,minor ankle swelling,warm some redness proximal portion Wound Wound : Wound Location: Left leg A/P Assessment and Plan Developed secondary cellulitis will restart IV ancef neurovascular intact wbc 14 tmax 100 ambulate pain control diet Loreta Rodriguez MD January 26, 2018 12:31
[2018-01-26] MEDS: ACETAMINOPHEN 1000 MG/100 ML 100 ML IV SCH ×2 (14:56→21:34)
[2018-01-27 00:05] VITALS: PULSE 82
[2018-01-27] MEDS: ENOXAPARIN SODIUM 30 MG/0.3 ML SYRINGE SQ SCH (00:43)
[2018-01-27] MEDS: KETOROLAC TROMETHAMINE 30 MG/ML (IVP) VIAL IV PUSH SCH ×3 (00:43→10:24)
[2018-01-27 00:44] VITALS: BP 117/67; PULSE 75; RESP 16; TEMP 98; O2SAT 98
[2018-01-27] MEDS: ceFAZolin 2 GM PREMIX 50 ML IV SCH ×2 (03:23→10:25)
[2018-01-27] MEDS: ACETAMINOPHEN 1000 MG/100 ML 100 ML IV SCH ×2 (03:24→09:14)
[2018-01-27] MEDS: MORPHINE SULFATE 4 MG/ML INJ IV PUSH PRN (03:24)
[2018-01-27 04:00] VITALS: BP 117/73; PULSE 75; RESP 16; TEMP 97.8; O2SAT 99
[2018-01-27 04:08] VITALS: PULSE 53
[2018-01-27 08:11] VITALS: PULSE 59
[2018-01-27] MEDS ORDERED: CRUTMIS35 (08:13)
[2018-01-27] MEDS ORDERED: FAMOTIDINE 20 MG TAB PO SCH (09:00)
[2018-01-27] MEDS: DOCUSATE SODIUM 50 MG/SENNA 8.6 MG TAB PO SCH (09:00)
[2018-01-27 09:16] VITALS: BP 132/75; PULSE 66; RESP 20; TEMP 98.5; O2SAT 97
[2018-01-27] MEDS ORDERED: PERI PO (10:56)
[2018-01-27] MEDS ORDERED: PERC5TAB12 PO (10:56)
[2018-01-27] MEDS ORDERED: CEPH-460 PO (10:56)
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
== END 2018-01-27 12:00 | disposition home or self-care (01) | DRG 921 ==
LOC: NEPE 00:07 → NEDA 05:37 → OBSVTOIN 06:21 → HCIN 08:16
PROVIDERS: ADMIT Surgery Trauma Surgery; ATTEND Surgery Trauma Surgery
PROC: 0J9P3ZZ Drainage of Left Lower Leg Subcutaneous Tissue and Fascia, Percutaneous Approach (ICD-10-PCS; principal; 2018-01-24 19:36)
DX: L76.32 Postprocedural hematoma of skin and subcutaneous tissue following other procedure (principal)
CPT/HCPCS: 75635; 80048; 80053; 85025; E0113; J0131; J0690; J1650; J1885; J2250; J2270; J2405; J3010; Q9967